=== PATIENT | male | born 1990 | race Caucasian/White ===

== ENCOUNTER 2017-10-24 20:16 | Emergency (ER) | payer BC, MEDICAID, OTHER ==
--- NOTE | 2017-10-24 20:45 | EDM.PDOC ---
ED HPI GENERAL MEDICAL PROBLEM - General Chief Complaint: Laceration Stated Complaint: CUT MIDDLE FINGER ON LEFT HAND Time Seen by Provider: 10/24/17 20:44 Source of Information: Reports: Patient - History of Present Illness INITIAL COMMENTS - FREE TEXT/NARRATIVE: Patient is here for evaluation to a laceration to his left middle fingertip. Patient states that this happened around 1700 hrs. this evening when he was working on a piece of outdoor farm machinery. He states that he was delayed coming in as he did go to [employer] with his daughter. He reports that he just bandaged his finger up and the bleeding stopped adequately to go to this. Patient reports having minimal pain at rest, does have significant pain when the dressing is removed or wound is touched. Patient states that he thinks he had the tetanus vaccine approximately 7 years ago in the . Patient is not diabetic. He has no history of bleeding or clotting disorders. Left 3-Middle finger Pain Score (Numeric/FACES): 7 - Related Data Allergies Allergy/AdvReac Type Severity Reaction Status Date / Time No Known Allergies Allergy Verified 10/24/17 20:45 Home Meds: Home Meds . [No Known Home Meds] 10/24/17 [History] ED ROS GENERAL - Review of Systems Review Of Systems: See Below Constitutional: Reports: No Symptoms Skin: Reports: Wound (Laceration to left middle fingertip.) Psychiatric: Reports: No Symptoms Hematologic/Lymphatic: Reports: No Symptoms ED EXAM, SKIN/RASH Exam: See Below Exam Limited By: No Limitations General Appearance: Alert, WD/WN, No Apparent Distress Extremities: Normal Range of Motion, Normal Capillary Refill Neurological: Alert, Oriented, No Motor/Sensory Deficits Psychiatric: Normal Affect, Normal Mood Skin: Warm, Dry, Wound/Incision (Jagged laceration to the left middle fingertip , 1.5cm total length) ED SKIN PROCEDURES - Laceration/Wound Repair Left Finger Lac/Wound length In cm: 1.5 Appearance: Superficial, Irregular, Mildly Contaminated Distal NVT: Neuro & Vascular Intact Anesthetic Type: Local Local Anesthesia - Lidocaine (Xylocaine): 1% Plain Local Anesthetic Volume: 3cc Skin Prep: Chlorhexidine (Hibiciens) Exploration/Debridement/Repair: Wound Explored, In a Bloodless Field, Minimal Debridement, No Foreign Material Found, Multiple Flaps Aligned Closed with: Sutures Suture Size: 4-0 # of Sutures: 5 Suture Type: Nylon, Interrupted, Simple Sterile Dressing Applied: Provider Tetanus Status Addressed: Yes Course - Vital Signs Last Recorded V/S: Last Vital Signs Temp 99.0 F 10/24/17 20:50 Pulse 87 10/24/17 20:50 Resp 20 10/24/17 20:50 BP 128/85 10/24/17 20:50 Pulse Ox 98 10/24/17 20:50 - Orders/Labs/Meds Orders: Active Orders 24 hr Category Date Time Status Vaccines to be Administered [RC] PER UNIT ROUTINE Care 10/24/17 21:30 Active Meds: Medications Discontinued Medications Generic Name Dose Route Start Last Admin Trade Name Freq PRN Reason Stop Dose Admin Diphtheria/Tetanus/Acell Pertussis 0.5 ml 10/24/17 21:30 Adacel IM 10/24/17 21:31 .ONCE ONE Lidocaine HCl 10 ml 10/24/17 20:59 10/24/17 21:27 Xylocaine 1% INJECT 10/24/17 21:00 10 ml ONETIME ONE Administration Lidocaine/Epinephrine 20 ml 10/24/17 20:58 Xylocaine 1% With Epinephrine 1:100,000 INJECT 10/24/17 20:59 ONETIME ONE - Re-Assessments/Exams Free Text/Narrative Re-Assessment/Exam: Jagged laceration with multiple flaps was repaired with a total of 5 simple interrupted sutures. Patient tolerated this well. Tdap booster given. Wound care instructions and monitoring for infection were discussed and patient verbalized understanding. Patient will follow up in 7-10 days for suture removal or certainly sooner if needed. 10/24/17 21:57 Departure - Departure Time of Disposition: 21:54 Disposition: Home, Self-Care 01 Condition: Good Clinical Impression: Finger laceration Qualifiers: Encounter type: initial encounter Finger: middle finger Damage to nail status: without damage Foreign body presence: without foreign body Laterality: left Qualified Code(s): S61.213A - Laceration without foreign body of left middle finger without damage to nail, initial encounter - Discharge Information Referrals: PCP,None [Primary Care Provider] - Forms: ED Department Discharge Additional Instructions: Keep wound clean and dry. You may shower as normal tomorrow, no pools in hot tubs until it is completely healed. Starting tomorrow you may leave it open to air the need to cover this when working outdoors or in a dirty environment. Follow-up in clinic in 7-10 days for suture removal or certainly sooner if needed. You may call [phone] to schedule suture removal with nursing. - My Orders Last 24 Hours: My Active Orders 10/24/17 21:30 Vaccines to be Administered [RC] PER UNIT ROUTINE - Assessment/Plan Last 24 Hours: My Active Orders 10/24/17 21:30 Vaccines to be Administered [RC] PER UNIT ROUTINE
[2017-10-24] MEDS ORDERED: Lidocaine 1% with EPINEPHrine 1:100,000 20 ML MDV INJECT ONE (20:58)
[2017-10-24] MEDS ORDERED: Lidocaine 1% 10 ML MDV INJECT ONE (20:59)
[2017-10-24] MEDS ORDERED: Diphtheria,Pertussis(Acell),Tetanus Vaccine 0.5 ML SDV IM ONE (21:30)
== END 2017-10-24 22:31 | disposition home or self-care (01) ==
LOC: JD.ED 20:16
DX: S61.213A Laceration without foreign body of left middle finger without damage to nail, initial encounter (principal); Z23 Encounter for immunization; W30.89XA Contact with other specified agricultural machinery, initial encounter
CPT/HCPCS: 12001; 90471; 90715; 99282-25; 99283-25